=== PATIENT | male | born 1980 | race African-American/Black ===

== ENCOUNTER 2018-08-28 14:45 | Emergency (ER) | payer SELFPAY ==
[~2018-08-28] VITALS: Ht 182.9 cm; Wt 88.5 kg
[2018-08-28 14:45] VITALS: BP 127/79
--- NOTE | 2018-08-28 15:08 | NUR ---
PT C/O ALTERED/LOW BLOOD SUGAR X5 MIN [employer], PT REPORTS FEELING SHAKY AND DIZZY "I THOUGHT I WAS GOING INTO DIABETIC COMA." DRANK A SODA AND HAD CANDY. DENIES N/V/D; LUNGS CLEAR BL; HR EVEN AND REGULAR; PT DENIES ANY FEVER, CP, SOB, OR COUGH AT THIS TIME; PATIENT STATES PAIN OF 0/10 AT THIS TIME; VSS; PATIENT POSITIONED FOR COMFORT; HOB ELEVATED; BEDRAILS UP X2; BED DOWN. ER MD AT BEDSIDE CHECK PATIENT.
[2018-08-28 15:22] VITALS: BP 127/79
--- NOTE | 2018-08-28 15:22 | NUR ---
Patient discharged with v/s stable. Written and verbal after care instructions given and explained. Patient verbalized understanding. Ambulatory with steady gait. All questions addressed prior to discharge. Advised to follow up with PMD.
== END 2018-08-28 15:22 | disposition home or self-care (01) ==
LOC: MED 14:45
DX: E11.649 Type 2 diabetes mellitus with hypoglycemia without coma (principal); F17.210 Nicotine dependence, cigarettes, uncomplicated
CPT/HCPCS: 99282